=== PATIENT | female | born 2000 | race Caucasian/White ===

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

== ENCOUNTER 2023-06-28 17:50 | Outpatient (REF) | payer BC, SELFPAY ==
[2023-06-28 21:47] LABS: Bacteria Rare HPF (Negative); C & S Indicated? C&S Done As Ordered; Casts Negative LPF (Negative); Crystals Negative HPF (Negative); Epithelial Cells Few HPF (Negative); Mucus Negative (Negative); RBC 0-2 HPF (0-2); WBC 0-2 HPF (0-5)
== END 2023-06-28 17:51 | disposition home or self-care (01) ==
LOC: LBN 17:50
PROVIDERS: PCP Nurse Practitioner Pediatrics; Visit Provider Physician Assistant Medical
DX: R10.30 Lower abdominal pain, unspecified (principal); R82.998 Other abnormal findings in urine
CPT/HCPCS: 81015; 87086

== ENCOUNTER 2024-10-29 11:20 | Outpatient (REF) | payer BC, SELFPAY ==
--- NOTE | 2024-10-29 11:07 | PAPFT_PTH ---
PATIENT: Luci Reyna LOC: [facility] U#:[id number] AGE/SX: 24/F ROOM: RE10/29/[address]: Kylee Quesada DO : 2000 BED: DIS: 10/29/2024 SPEC #: [id number] RECD: 10/29/24 12:47 STATUS: SOUShravan REQ #: [id number] CRISTINO: 10/29/24 11:[address]: Kylee Quesada DEPT: [facility] Cytology RECD BY: Aliya Hdez ENTERED: 10/29/24 12:47 SP TYPE: PAPFT OTHR DR: Unknown,Unknown Tissues: 1 - CX/ENDOCX FOR PAP SMEARS Procedures: PAP THIN PREP/UVM Screening HPV DNA PROBE Comments: [id number] (HPV 16 & 18/45) (CHLAMYDIA/GC)
[2024-10-30 11:11] LABS: Chlamydia Result Negative (Negative); GC Result Negative (Negative)
== END 2024-10-29 11:21 | disposition home or self-care (01) ==
LOC: LBN 11:20
PROVIDERS: Visit Provider Obstetrics & Gynecology
DX: Z11.3 Encounter for screening for infections with a predominantly sexual mode of transmission (principal); Z11.51 Encounter for screening for human papillomavirus (HPV); Z01.419 Encounter for gynecological examination (general) (routine) without abnormal findings; R87.611 Atypical squamous cells cannot exclude high grade squamous intraepithelial lesion on cytologic smear of cervix (ASC-H)
CPT/HCPCS: 87491; 87591; 88142; 87624

== ENCOUNTER 2024-10-30 13:13 | Outpatient (REF) | payer BC, SELFPAY ==
[2024-10-30 14:10] LABS: Abs Immature Grans 0.01 10^3/uL (0.0-0.06); Absolute Basophil Count 0.05 10^3/uL (0.0-0.2); Absolute Eosinophil Count 0.08 10^3/uL (0.0-0.7); Absolute Lymphocyte Count 1.82 10^3/uL (1.2-3.4); Absolute Monocyte Count 0.43 10^3/uL (0.1-0.8); Absolute Neutrophil Count 2.73 10^3/uL (1.2-6.7); Eosinophils % 1.6 %; HCT 39.6 % (36.0-46.0); HGB 13.6 g/dL (11.2-15.7); Immature Grans % 0.2 %; Lymphocytes % 35.5 %; MCHC 34.3 % (32.0-36.0); MCV 87 fL (80-95); MPV 10.6 fL (8.0-11.0); Monocytes % 8.4 %; Neutrophils % 53.3 %; Platelet Count 220 10^3/uL (130-400); RBC 4.54 10^6/uL (3.93-5.22); RDW 12.2 % (11.7-14.6); RDW-SD 39.1 fL; WBC 5.12 10^3/uL (4.4-10.8)
== END 2024-10-30 13:14 | disposition home or self-care (01) ==
LOC: NCHCN 13:13
PROVIDERS: Visit Provider Family Medicine
DX: B99.9 Unspecified infectious disease (principal)
CPT/HCPCS: 85025